=== PATIENT | male | born 1985 | race Caucasian/White ===

== ENCOUNTER 2021-01-09 14:25 | Outpatient (CLI) | payer OTHER, SELFPAY ==
--- NOTE | 2021-01-09 | MR_ITS ---
WS: [id number] MRI LUMBAR SPINE NONCONTRAST TECHNIQUE: Sagittal T1, T2 and STIR imaging. Axial T1 and T2 imaging. CLINICAL INFORMATION: LOW BACK PAIN COMPARISON: None. FINDINGS: Normal lumbar alignment. No acute compression. No high-grade central canal stenosis. L1-L2: Normal. L2-L3: Normal. L3-L4: Small left foraminal protrusion with contact of the exiting left L3 nerve root and mild left f oraminal narrowing. Spinal canal and right foramen are patent. Mild facet arthropathy. L4-L5: Mild annular bulging with slight effacement of the ventral thecal sac. Small right proximal fo raminal protrusion with tiny annular fissure. Slight contact of the exiting right L4 nerve root. Mild right foraminal narrowing. Left foramen is patent. Mild facet arthropathy. L5-S1: Left lateral disc bulging with small annular fissure. Slight contact of the far exiting L5 ner ve root. Mild facet arthropathy. Visualized pelvic bony structures: Normal. Paravertebral soft tissues: Normal. MR/MR lumbar spine wo con* [id number] IMPRESSION: 1. Normal lumbar alignment. No acute compression. No high-grade central canal stenosis. 2. Small left proximal foraminal protrusion L3-4 with contact of the exiting L 3 nerve root. Recommend correlation for left L3 nerve root symptoms. 3. Small right foraminal protrusion L4-5 with a small annular fissure contacts the exiting right L4 nerve root. 4. Far left lateral disc bulging L5-S1 with a small annular fissure encroaches on the far exiting left L5 nerve root.
--- NOTE | 2021-01-09 14:54 | XR_ITS ---
WS: [id number] LUMBAR SPINE FLEXION AND EXTENSION TECHNIQUE: 3 views of the lumbar spine: Lateral neutral, flexion, and extension views. CLINICAL INFORMATION: LOW BACK PAIN COMPARISON: None. FINDINGS: Normal lumbar alignment on the neutral view. No instability on the flexion and extension views. Disc space heights and vertebral body heights well -preserved. No acute compression fractures. XR/XR lumbar spine f/e only [id number] IMPRESSION: No instability on flexion-extension.
== END 2021-01-09 14:26 | disposition home or self-care (01) ==
LOC: RADWPI 14:31
PROVIDERS: Visit Provider Nurse Practitioner
DX: M51.26 Other intervertebral disc displacement, lumbar region (principal); M51.27 Other intervertebral disc displacement, lumbosacral region
CPT/HCPCS: 72120; 72148

== ENCOUNTER 2021-11-09 20:00 | Outpatient (CLI) | payer OTHER, SELFPAY | END 2021-11-09 20:01 | disposition home or self-care (01) | LOC: SLEEP 11-10 05:17 | PROVIDERS: Visit Provider Family Medicine | DX: G47.33 Obstructive sleep apnea (adult) (pediatric) (principal) | CPT/HCPCS: 95810 ==

== ENCOUNTER 2022-03-20 20:00 | Outpatient (CLI) | payer OTHER, SELFPAY | END 2022-03-20 20:01 | disposition home or self-care (01) | LOC: SLEEP 03-21 06:17 | PROVIDERS: Visit Provider Family Medicine | DX: G47.33 Obstructive sleep apnea (adult) (pediatric) (principal) | CPT/HCPCS: 95811 ==

== ENCOUNTER 2022-04-26 14:20 | Emergency (ER) | payer OTHER, SELFPAY ==
[2022-04-26] VITALS (7 sets, daily range): BP systolic 134–149; BP diastolic 58–92; PULSE 51–77; RESP 9–16; TEMP 36.6; O2SAT 94–97; BMI 27.8
--- NOTE | 2022-04-26 14:56 | ECG_ITS ---
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 Measurements Intervals [place] Rate: 69 P: 39 TN: 124 QRS: 77 QRSD: 90 T: 52 QT: 369 QTc: 397 Interpretive Statements SINUS RHYTHM NONSPECIFIC T-WAVE ABNORMALITY INTERPRETATION BASED ON A DEFAULT AGE OF 40 YEARS No previous ECG available for comparison Electronically Signed On 04-27-2022 6:18:32 CDT by Yoana Cornejo M.D. [id number] f
--- NOTE | 2022-04-26 15:13 | W.ED.CHESTPA ---
HPI - Chest Pain General: Chief Complaint: Chest Pain Stated Complaint: Cough and chest pain possible covid Time Seen by Provider: 04/26/22 15:12 Source: patient Mode of arrival: ambulatory Limitations: no limitations History of Present Illness: This patient presents to the emergency department at the behest of the [place] clinic. He states over the past week or so he has had chest pains which are intermittent and without any dyspnea discernible pattern. He states that a are, achy for period of time and then they go away. He states that he feels like his chest is congested. He denies any known fevers. He denies any known exposure to infectious disease. His cough has been productive of discolored and greenish sputum. He does not have a tobacco use history. He does have a history of asthma as a child but not as an adult. He has not been exposed to any known individuals with infectious disease. He is been immunized against COVID. He is states that when he he can be out walking and may get chest pain or he can walk and not get chest pain. He states the chest pains are short in duration. They are nonradiating. They are not changed with position. He denies any nausea vomiting or diarrhea. No history of thromboembolic disease or risk of same. Pain radiation: none Quality: aching Exacerbating factors: nothing Associated symptoms: Deny abdominal pain, dyspnea, fever(s), nausea, palpitations, syncope or vomiting Treatment prior to arrival: none Review of Systems Const: Denies: fever(s), chills or body aches Eyes: Denies: change in vision ENMT: Denies: throat pain, odynophagia, nasal discharge or nasal congestion Card: Denies: palpitations, irregular heart rhythm, edema, syncope or pre-syncope Resp: Reports: productive cough and chest congestion; Denies: dyspnea, wheezing or hemoptysis GI: Denies: abdominal pain, nausea, vomiting or diarrhea Musc: Denies: neck pain, back pain, extremity pain or extremity swelling Skin/Breast: Denies: rash Neuro: Denies: headache(s), numbness in extremities, weakness in extremities or dizziness Psych: Denies: anxiety or depression Endo: Denies: polyuria or polydipsia Physical Exam Narrative: EXAM NARRATIVE: Patient makes good eye contact speech is goal-directed and fluent and he talks in complete sentences. Const: COMMON NORMALS: no acute distress, average body habitus and patient oriented x3 GENERAL APPEARANCE: cooperative and comfortable ORIENTATION/CONSCIOUSNESS: Yes awake HENMT: COMMON NORMALS: normocephalic, Normal nasal mucous membranes and turbinates present, moist oral mucous membranes and oropharynx normal HEAD & SCALP: normocephalic FACE & SINUS: normal facial exam NOSE: Normal nasal mucous membranes and turbinates present Eye: COMMON NORMALS: Equal, round and reactive pupils present, EOMs intact bilaterally, conjunctivae normal and no scleral icterus CONJUNCTIVA: Yes conjunctivae normal PUPIL: Yes Equal, round and reactive pupils present Neck/C-Spine: COMMON NORMALS: full ROM, no lymphadenopathy and supple Chest: COMMONS NORMALS: normal inspection of the chest and normal palpation of entire chest wall Resp: COMMON NORMALS: normal respiratory effort, No use of accessory muscles and clear to auscultation bilaterally AUSCULTATION: clear to auscultation bilaterally Cardio: COMMON NORMALS: regular rate, regular rhythm, No murmurs present (Cardio) and Peripheral pulses 2+ throughout RATE: regular rate RHYTHM: regular rhythm PERIPHERAL PULSES: Peripheral pulses 2+ throughout GI: COMMON NORMALS: Normal to inspection, nondistended, normoactive bowel sounds present, Soft to palpation, non-tender, no masses and no bruits PALPATION: Yes Soft to palpation : COMMON NORMALS: Yes no CVA tenderness BLADDER/KIDNEY EXAM: Yes no CVA tenderness Back/Pelvis: COMMON NORMALS: no CVA tenderness, thoracic and lumbar spine normal to inspection, no thoracic nor lumbar tenderness, thoraco-lumbar ROM normal and straight leg raise negative bilaterally Extremity: COMMON NORMALS: normal to inspection, full ROM, capillary refill normal, no joint enlargement, no clubbing, cyanosis or edema, no calf tenderness and no pedal edema Neuro: COMMON NORMALS: patient oriented x3, moves all extremities, no focal motor deficits and no sensory deficits noted CRANIAL NERVES: Yes CN normal except as noted SPEECH: speech normal Psych: COMMON NORMALS: mental status grossly normal Skin: COMMON NORMALS: no rashes or lesions noted, no wounds and turgor normal GENERAL SKIN EXAM: no rashes or lesions noted and turgor normal Course Reevaluation(s): Reevaluation #1: Remains clinically stable with normal vital signs, normal pox pulse oximetry etc. Spouse is now here and is interacting normally with her. No new or focal findings on repeat evaluation. Time: 17:26 Vital Signs: Vital signs: Vital Signs Temperature 97.8 F 04/26/22 14:49 Pulse Rate 77 04/26/22 14:49 Respiratory Rate 16 04/26/22 14:49 Blood Pressure 141/58 04/26/22 14:49 Pulse Oximetry 94 04/26/22 14:49 MDM - Chest Pain Medical Decision Making Patient clinically presents with chest pain symptoms do not sound cardiac or other worrisome etiology by history. He also has associated productive cough and occasional wheeze. His clinical evaluation here does not suggest cardiovascular thromboembolic or other serious etiologies. Chest x-ray is generally reassuring does have some changes which may represent either atelectatic changes and/or possibly early infiltrate. Because of his symptoms we will go ahead and empirically start him on a 7-day course of doxycycline, 5 days of prednisone as well as a metered-dose inhaler. Discussed all findings their limitations and implications with the patient and spouse. Discussed expected course and return precautions as well. They voiced understanding and were appreciative of care. Lab Data I reviewed the patient's lab results. : 04/26/22 15:44 04/26/22 15:44 Radiology Impressions Chest X-Ray 04/26/22 15:34 IMPRESSION: Minimal bilateral hilar to lower lobe atelectasis versus early infiltrate. Laboratory Results WBC 8.4 10^3/uL (4.0-10.0) 04/26/22 15:44 RBC 4.90 10^6/uL (4.1-5.3) 04/26/22 15:44 Hgb 14.6 g/dL (11.7-16.6) 04/26/22 15:44 Hct 43.9 % (42.0-52.0) 04/26/22 15:44 MCV 89.6 fl (80-94) 04/26/22 15:44 MCH 29.8 pg (28.0-34.0) 04/26/22 15:44 MCHC 33.3 g/dL (30.0-36.0) 04/26/22 15:44 RDW 12.5 % (12.1-15.1) 04/26/22 15:44 Plt Count 306 10^3/cmm (130-400) 04/26/22 15:44 MPV 9.5 fL (7.4-10.4) 04/26/22 15:44 Neut % (Auto) 74.5 % 04/26/22 15:44 Lymph % (Auto) 13.3 % 04/26/22 15:44 [place] % (Auto) 9.1 % 04/26/22 15:44 Eos % (Auto) 2.0 % 04/26/22 15:44 Baso % (Auto) 0.4 % 04/26/22 15:44 Neut # (Auto) 6.24 10^3/uL (1.8-7.7) 04/26/22 15:44 Lymph # (Auto) 1.1 10^3/uL (0.8-4.8) 04/26/22 15:44 [place] # (Auto) 0.8 10^3/uL (0.2-0.9) 04/26/22 15:44 Eos # (Auto) 0.2 10^3/uL (0.0-0.8) 04/26/22 15:44 Baso # (Auto) 0.0 10^3/uL (0.0-0.1) 04/26/22 15:44 Nucleated RBC % (auto) 0 % 04/26/22 15:44 Nucleated RBCs # 0.0 /100WBC 04/26/22 15:44 D-Dimer 0.39 ug/mIFEU (0-0.59) 04/26/22 15:44 Sodium 140 mmol/L (136-145) 04/26/22 15:44 Potassium 3.9 mmol/L (3.5-5.1) 04/26/22 15:44 Chloride 102 mmol/L (98-107) 04/26/22 15:44 Carbon Dioxide 25 mmol/L (22-29) 04/26/22 15:44 Anion Gap 16.9 (5-19) 04/26/22 15:44 BUN 16 mg/dL (6-20) 04/26/22 15:44 Creatinine 1.1 mg/dL (0.7-1.2) 04/26/22 15:44 GFR Calculation 74.5 mL/min (90-130) L 04/26/22 15:44 Glucose 94 mg/dL (65-115) 04/26/22 15:44 Calculated Osmolality 291 mOsm/kg (285-295) 04/26/22 15:44 Calcium 9.6 mg/dL (8.5-10.5) 04/26/22 15:44 Total Bilirubin 0.3 mg/dL (0.15-1.2) 04/26/22 15:44 AST 23 U/L (0-40) 04/26/22 15:44 ALT 57 U/L (0-41) H 04/26/22 15:44 Alkaline Phosphatase 117 U/L (40-130) 04/26/22 15:44 Troponin T Baseline 7 ng/L (0-15) 04/26/22 15:44 Total Protein 7.5 g/dL (6.6-8.7) 04/26/22 15:44 Albumin 4.4 g/dL (3.5-5.2) 04/26/22 15:44 Globulin 3.1 g/dL (1.3-4.6) 04/26/22 15:44 SARS-CoV-2 Ag (Rapid) Negative (Negative) 04/26/22 15:57 Discharge Plan Discharge Patient Disposition: Home Clinical Impression: Pneumonia Condition: Stable Prescriptions: New doxycycline hyclate 100 mg tablet 100 mg PO BID 7 Days Qty: 14 0RF prednisone 20 mg tablet 20 mg PO BID 5 Days Qty: 10 0RF albuterol sulfate 90 mcg/actuation HFA aerosol inhaler 2 inh inhalation Q6H PRN (Reason: shortness of breath or wheezing) Qty: 6.7 0RF No Action famotidine 10 mg Tablet 10 mg PO BID tizanidine 4 mg Tablet 2 mg PO Q8H PRN (Reason: Muscle Spasm) prazosin 1 mg Capsule 1 mg PO QPM [place] 10-325 mg Tablet 1 tab PO Q4H PRN (Reason: Pain) nicotine (polacrilex) 4 mg Gum 4 mg BUCCAL Q2H gabapentin 300 mg Capsule 300 mg PO DAILY fluoxetine 20 mg Capsule 20 mg PO BID Rx Instructions: administer in the morning and at noon/midday diclofenac sodium 1 % Gel 2 g TOPICAL QID Rx Instructions: apply to single elbow, wrist or hand; for hand includes palm/fingers/back of hand cholecalciferol (vitamin D3) 50 mcg (2,000 unit) Tablet 50 mcg PO DAILY Discharge Orders: Discharge ED (Routine); Ordered 04/26/22 Ordered By: Salty Fox Discharge Diet: Usual diet Discharge Activity: Increase activity as tolerated Patient Instructions: Opioid Safety Activity Restrictions/Additional Instructions: We have prescribed an antibiotic, anti-inflammatory, inhaler to help treat your pulmonary infection. It is important medication should improve your symptoms however if your symptoms do not steadily improve, worsen or you develop new or other concerning symptoms return to this or the nearest emergency department. Coding Level of Care Code ED Maintenance Mechanic Helper for Kenroy Morrison Exam Comprehensive
--- NOTE | 2022-04-26 15:34 | XRR_ITS ---
PROCEDURE INFORMATION: Exam: XR Chest Exam date and time: 04/26/2022 3:57 PM Age: 37 years old Clinical indication: Pain; Cough; Angina pectoris; Additional info: Cp TECHNIQUE: Imaging protocol: Radiologic exam of the chest. Views: 1 view. COMPARISON: No relevant prior studies available. FINDINGS: Lungs: Minimal bilateral hilar to lower lobe atelectasis versus early infiltrate. Pleural spaces: Unremarkable. No pleural effusion. No pneumothorax. Heart/Mediastinum: Unremarkable. No cardiomegaly. Bones/joints: Unremarkable. XR/XR chest 1V portable [id number] IMPRESSION: Minimal bilateral hilar to lower lobe atelectasis versus early infiltrate.
[2022-04-26 16:00] LABS: Basophils % 0.4 %; Eosinophils # 0.2 10^3/uL (0.0-0.8); Hematocrit 43.9 % (42.0-52.0); Hemoglobin 14.6 g/dL (11.7-16.6); Lymphocytes # 1.1 10^3/uL (0.8-4.8); Lymphocytes % 13.3 %; Mean Corpuscular HGB Conc 33.3 g/dL (30.0-36.0); Mean Corpuscular Hemoglobin 29.8 pg (28.0-34.0); Mean Corpuscular Volume 89.6 fl (80-94); Mean Platelet Volume 9.5 fL (7.4-10.4); Monocytes # 0.8 10^3/uL (0.2-0.9); Monocytes % 9.1 %; Neutrophils # 6.24 10^3/uL (1.8-7.7); Neutrophils % 74.5 %; Nucleated Red Blood Cells % 0 %; Platelet Count 306 10^3/cmm (130-400); Red Cell Distribution Width 12.5 % (12.1-15.1); White Blood Count 8.4 10^3/uL (4.0-10.0)
[2022-04-26 16:17] LABS: D Dimer 0.39 ug/mIFEU (0-0.59)
[2022-04-26 16:45] LABS: SARS Covid-2 Antigen Negative (Negative)
[2022-04-26 17:02] LABS: Troponin(5th) Baseline 7 ng/L (0-15)
[2022-04-26 17:10] LABS: Alanine Aminotransferase 57 U/L (0-41); Albumin Level 4.4 g/dL (3.5-5.2); Alkaline Phosphatase 117 U/L (40-130); Anion Gap 16.9 (5-19); Aspartate Amino Transferase 23 U/L (0-40); Blood Urea Nitrogen 16 mg/dL (6-20); Calcium 9.6 mg/dL (8.5-10.5); Carbon Dioxide 25 mmol/L (22-29); Chloride 102 mmol/L (98-107); Creatinine Clr Calc Pharmacy 103.8913; Globulin 3.1 g/dL (1.3-4.6); Glomerular Filtration Rate 74.5 mL/min (90-130); Glucose 94 mg/dL (65-115); Osmolality Calculated 291 mOsm/kg (285-295); Potassium 3.9 mmol/L (3.5-5.1); Sodium 140 mmol/L (136-145); Total Bilirubin 0.3 mg/dL (0.15-1.2); Total Protein 7.5 g/dL (6.6-8.7)
== END 2022-04-26 17:47 | disposition home or self-care (01) ==
PROVIDERS: Emergency Provider Emergency Medicine
DX: J18.9 Pneumonia, unspecified organism (principal)
CPT/HCPCS: 71045; 80053; 84484; 85025; 85378; 87426; 93005; 99285